=== PATIENT | male | born 1945 | race Asian ===

== ENCOUNTER 2019-10-20 11:48 | Emergency (ER) | payer MEDICARE ==
[~2019-10-20] VITALS: Ht 154.9 cm; Wt 72.7 kg
[2019-10-20] MEDS ORDERED: ATOR10TA84 PO (13:08)
[2019-10-20] MEDS ORDERED: BENZ0.5T44 PO (13:08)
[2019-10-20] MEDS ORDERED: LEVE250T55 PO (13:08)
[2019-10-20] MEDS ORDERED: SODIUM CHLORIDE 0.9% 100 ML ONE (15:26)
[2019-10-20] MEDS ORDERED: IOVERSOL 320 MG/ML 100 ML VIAL ONE (15:26)
[2019-10-20 16:26] LABS: CALCIUM, TOTAL 9.5 mg/dL (8.8-10.5); CREATININE 1.24 mg/dL (0.60-1.30); POTASSIUM 3.6 mmol/L (3.5-5.1)
[2019-10-20 16:30] LABS: BASOPHILS % (AUTO) 1.1 % (0.0-2.0); EOSINOPHILS % (AUTO) 4.4 % (1.0-6.0); HEMATOCRIT 38.6 % (41-53); HEMOGLOBIN 12.8 g/dL (13.5-17.5); LYMPHOCYTES # (AUTO) 2.1 K/uL (1.0-4.8); LYMPHOCYTES % (AUTO) 25.7 % (22.0-44.0); MEAN CORPUSCULAR HEMOGLOBIN 29.7 pg (26.0-34.0); MEAN CORPUSCULAR HGB CONC 33.2 G/dL (31.0-37.0); MEAN CORPUSCULAR VOLUME 90 fL (80-100); MONOCYTES # (AUTO) 0.7 K/uL (0.1-1.0); MONOCYTES % (AUTO) 8.7 % (2.0-9.0); NEUTROPHILS # (AUTO) 4.9 K/uL (1.8-7.7); NEUTROPHILS % (AUTO) 60.1 % (40.0-70.0); PLATELET COUNT (AUTO) 228 K/uL (150-450); RED BLOOD CELL COUNT(AUTO) 4.31 MIL/uL (4.50-5.90); RED CELL DISTRIBUTION WIDTH 13.1 % (11.5-14.5)
[2019-10-20 16:32] LABS: ALBUMIN 3.2 g/dL (3.4-5.0); BILIRUBIN,TOTAL 0.4 mg/dL (0.1-1.0); TOTAL PROTEIN, SERUM 8.2 g/dL (6.4-8.2)
[2019-10-20 17:16] VITALS: BP 124/51
[2019-10-20] MEDS ORDERED: LEVOFLOXACIN 750 MG TABLET PO ONE (17:45)
== END 2019-10-20 18:30 | disposition home or self-care (01) ==
LOC: EMS 11:54
DX: R05 Cough (principal); E78.00 Pure hypercholesterolemia, unspecified; Z87.891 Personal history of nicotine dependence; Z79.899 Other long term (current) drug therapy
CPT/HCPCS: 36415; 71045; 71275; 80053; 85025; 99285; J7050; Q9967